=== PATIENT | male | born 1975 | race Caucasian/White ===

== ENCOUNTER 2020-09-11 16:22 | Emergency (ER) | payer MEDICAID ==
[~2020-09-11] VITALS: Ht 182.9 cm; Wt 85.7 kg
[2020-09-11 16:28] VITALS: Ht 182.9 cm; Wt 85.7 kg
[2020-09-11 18:45] VITALS: BP 133/71
== END 2020-09-11 18:45 | disposition home or self-care (01) ==
LOC: ED 16:22
DX: T15.01XA Foreign body in cornea, right eye, initial encounter (principal); W45.8XXA Other foreign body or object entering through skin, initial encounter; Y93.89 Activity, other specified; Y92.89 Other specified places as the place of occurrence of the external cause; Y99.8 Other external cause status